=== PATIENT | male | born 1960 | race Caucasian/White ===

== ENCOUNTER 2017-10-23 18:11 | Emergency (ER) | payer MEDICAID ==
[2017-10-23 18:33] VITALS: RESP 16
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
[2017-10-23 19:00] LABS: PLATELET COUNT 294 10^3/uL (150-400)
[2017-10-23] MEDS ORDERED: guaiFENesin 200 MG/10 ML UDL ONE (22:48)
[2017-10-23] MEDS ORDERED: guaiFENesin 200 MG/10 ML UDL PO ONE (22:52)
[2017-10-24] MEDS ORDERED: IBUPROFEN 600 MG TAB PO ONE ×2 (02:32→08:58)
[2017-10-24] MEDS ORDERED: guaiFENesin 200 MG/10 ML UDL PO ONE (04:54)
[2017-10-24 09:22] VITALS: BP 118/75; PULSE 72; TEMP 97.9; O2SAT 92
== END 2017-10-24 09:23 ==
LOC: EDUNIT#
DX: J18.9 Pneumonia, unspecified organism (principal); F20.9 Schizophrenia, unspecified; F79 Unspecified intellectual disabilities; F17.200 Nicotine dependence, unspecified, uncomplicated
CPT/HCPCS: 80305; G0480

== ENCOUNTER 2017-11-10 20:50 | Emergency (ER) | payer MEDICAID ==
[2017-11-10 20:59] VITALS: RESP 16; TEMP 98.2
[2017-11-10] MEDS ORDERED: ASPIRIN 81 MG CHEWABLE TAB PO ONE (21:06)
[2017-11-10] MEDS ORDERED: NS 500 ML IV ONE (21:06)
--- NOTE | 2017-11-10 21:23 | CPEKG ---
Heart Rate: 67 RR Interval: 896 P-R Interval: 124 QRSD Interval: 106 QT Interval: 412 QTC Interval: 435 P [place]: 73 QRS [place]: 49 T Wave [place]: 59 EKG Severity - BORDERLINE ECG - EKG Impression: SINUS RHYTHM EKG Impression: PROBABLE LEFT ATRIAL ABNORMALITY Electronically Signed By: Kilo Olsen 10-Nov-2017 23:02:19
[2017-11-10 21:30] LABS: PLATELET COUNT 338 10^3/uL (150-400)
[2017-11-10 21:33] LABS: INR 1.09 (0.83-1.16); PROTIME(PATIENT) 14.3 SEC (12.0-15.0)
[2017-11-10 21:41] LABS: CREATINE KINASE 264 IU/L (0-224)
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
[2017-11-10 22:14] VITALS: BP 101/60; PULSE 86; O2SAT 94
== END 2017-11-10 22:14 | disposition home or self-care (01) ==
LOC: EDUNIT#
DX: S20.229A Contusion of unspecified back wall of thorax, initial encounter (principal); E86.9 Volume depletion, unspecified; F17.200 Nicotine dependence, unspecified, uncomplicated; W50.1XXA Accidental kick by another person, initial encounter

== ENCOUNTER 2017-11-13 04:37 | Emergency (ER) | payer MEDICAID ==
[2017-11-13 04:45] VITALS: BP 136/91; PULSE 100; RESP 16; TEMP 98.2; O2SAT 94
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
== END 2017-11-13 05:14 | disposition home or self-care (01) ==
DX: R07.89 Other chest pain (principal); F17.200 Nicotine dependence, unspecified, uncomplicated

== ENCOUNTER 2017-11-14 04:44 | Emergency (ER) | payer MEDICAID ==
[2017-11-14 04:52] VITALS: BP 144/86; PULSE 100; RESP 20; TEMP 97.9; O2SAT 92
--- NOTE | 2017-11-14 05:05 | EDPHY ---
H & P Stated Complaint: BLOOD IN STOOL, PAIN RLQ, HAS HAD PRIOR HERNIA SURGERY HPI/ROS: Chief Complaint: Right lower abdominal pain, blood in stool HPI: 57-year-old male well known to this emergency department and to myself is presenting complaining of pain in his right abdomen. Patient states that he was helping a friend move furniture yesterday. He has a history of bilateral inguinal hernia repairs. Patient states that he felt he strained little bit is been having pain in his right lower abdomen ovaries hernia repair site. Patient is also stating that he has has a history of chronic constipation. He has had a lot of from hard stools recently. Tonight he had a bowel movement there was some blood around the the brown stool. He has not been have any dark black bowel movements. He has not been passing gross blood. No deep abdominal pain. No nausea or vomiting. No fevers or chills. I did see the patient earlier yesterday morning for some right-sided rib pain. He does take psych medications was he feels are constipating. He is not taking any stool softeners. ROS: 10 point Review of Systems is negative except as noted in the HPI. Family History: non-contributory Physical Exam: Gen: Awake, Alert, No Distress HEENT: Nose: no rhinorrhea Eyes: PERRLA, EOMI Mouth: Moist mucosa Neck: Supple, no JVD Chest: nontender, lungs clear to auscultation Heart: S1, S2 normal, no murmur Abd: Soft, non-tender, no guarding Back: no CVA tenderness, no midline tenderness Ext: no edema, non-tender Skin: no rash Neuro: CN II-XII intact, Sensation grossly intact, Strength 5/5 in bilateral upper and lower extremities - Personal History Current Tetanus/Diphtheria Vaccine: Yes - Medical/Surgical History Hx Asthma: No Hx Chronic Respiratory Disease: No Hx Diabetes: No Hx Cardiac Disease: No Hx Renal Disease: No Hx Cirrhosis: No Hx Alcoholism: No Hx HIV/AIDS: No Hx Splenectomy or Spleen Trauma: No Other PMH: HERNIA X2, BIPOLAR, SCHIZOPHRENIA - Social History Smoking Status: Current every day smoker Constitutional: Initial Vital Signs Temperature (C) 36.6 C 11/14/17 04:47 Heart Rate 100 11/14/17 04:47 Respiratory Rate 20 11/14/17 04:47 Blood Pressure 144/86 H 11/14/17 04:47 O2 Sat (%) 92 11/14/17 04:47 O2 Delivery Mode Room Air Allergies/Adverse Reactions: Penicillins Allergy (Verified 08/22/14 13:59) Home Medications: Medication Instructions Recorded Zyprexa 11/10/17 Tegretol 11/13/17 Medical Decision Making ED Course/Re-evaluation: Patient is complaining of pain in his right lower abdomen over his hernia or site. His exam is soft and benign. There is absolutely no evidence of hernia or incarceration. Patient is also having some blood in his stools. This consistent with small anal fissure and hemorrhoids. He has been advised to begin taking senna as needed for constipation. Will discharge with follow up with [facility]. Departure - Departure Disposition: Home, Routine, Self-Care Clinical Impression: Constipation Condition: Good Instructions: Constipation (ED), High Fiber Diet (ED) Additional Instructions: Begin taking senna daily for your constipation. Follow up with primary care physician in 3-4 days for further evaluation. Referrals: Halle Tinsley PAC [Primary Care Provider] - As per Instructions
== END 2017-11-14 05:43 | disposition home or self-care (01) ==
DX: K59.00 Constipation, unspecified (principal); F17.200 Nicotine dependence, unspecified, uncomplicated

== ENCOUNTER 2017-11-24 06:49 | Emergency (ER) | payer MEDICAID ==
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
[2017-11-24] MEDS ORDERED: IBUPROFEN 600 MG TAB PO ONE (07:15)
[2017-11-24] MEDS ORDERED: ACETAMINOPHEN 500 MG TAB PO ONE (07:15)
[2017-11-24 08:33] VITALS: BP 136/92; PULSE 101; RESP 16; TEMP 97.9; O2SAT 96
== END 2017-11-24 08:36 | disposition home or self-care (01) ==
DX: T33.821D Superficial frostbite of right foot, subsequent encounter (principal); T33.822D Superficial frostbite of left foot, subsequent encounter; F17.200 Nicotine dependence, unspecified, uncomplicated; X31.XXXD Exposure to excessive natural cold, subsequent encounter